=== PATIENT | male | born 1995 | race Caucasian/White ===

== ENCOUNTER 2018-03-04 19:37 | Emergency (ER) | payer SELFPAY ==
[2018-03-04 19:39] VITALS: BP 160/88; PULSE 107; RESP 20; TEMP 36.9; O2SAT 99; BMI 22.9
--- NOTE | 2018-03-04 21:45 | ED.DCSUM_ITS ---
- ER Visit Summary Date of Service: 03/04/18 Chief Complaint: Right arm abscess History of Present Illness: The patient is a 22 M cyst on the right arm. Is been there for 2 days. He denies any drainage or fevers. He does have a history of abscesses. He had one on his buttock a couple of years ago. He has done nothing for it. He states it significantly painful around that area. Physical Examination: Vital signs reviewed. There is a 4 x 4 centimeter abscess in the right upper arm with surrounding erythema. There is fluctuance. Test Results: None performed Emergency Department Course and Treatment: Incision and drainage was performed in this area. 5 cc of lidocaine was used to anesthetize this area. A cruciate incision was made over the dome of the abscess. There was a significant amount of purulent material that drained from it. I will put him on Bactrim with his first dose tonight. He will follow-up with his doctor in his home town Treatment Plan: [] Disposition: Discharge Impression: Right abscess, 4 cm Incision and drainage by ED physician This note was generated with [employer] dictation software. It may contain incorrect words, spelling, and punctuation that were not noted in review of the chart prior to signing ED Disposition - Plan for ED Patient: Disposition: Home or Assisted Living Chief Complaint: Abscess Instructions: ED Abscess IandD Prescriptions: Smz/Tmp Ds [Bactrim Ds] 1 tab PO BID #14 tab Referrals: Care Physician,No Primary [Primary Care Provider] -
[2018-03-04 21:58] VITALS: PULSE 99; RESP 22; O2SAT 100
[2018-03-04] MEDS: Smz/Tmp Ds Tablet 1 TABLET PO (21:58)
--- NOTE | 2018-03-04 22:01 | ED.RN ---
THIS NURSE REVIEWED D/C INSTRUCTIONS WITH PT. PT VERBALIZED UNDERSTANDING OF INSTRUCTIONS. PT DENIES FURTHER NEEDS OR QUESTIONS AT THIS TIME. PT AMBULATES FROM ROOM ON OWN WITHOUT ASSISTANCE FROM STAFF
== END 2018-03-04 22:03 | disposition home or self-care (01) ==
PROVIDERS: Emergency Provider Emergency Medicine
DX: L02.413 Cutaneous abscess of right upper limb (principal); Z72.0 Tobacco use
CPT/HCPCS: 10060; 99283